=== PATIENT | female | born 2005 | race Caucasian/White ===

== ENCOUNTER 2025-05-05 00:58 | Emergency (ER) | payer OTHER, SELFPAY ==
[2025-05-05 01:02] VITALS: BP 121/94
--- NOTE | 2025-05-05 01:47 | ED.SKININJ ---
HPI-Injury
General
Chief Complaint: Bite
Time Seen by Provider: 05/05/25 01:10
History of Present Illness-Injury
Initial Injury comments:
19-year-old female presents to the emergency department for evaluation of the dog bite to the right foot. States she was lying in bed when her dogs got into fights and her foot was caught in the way. She has a large wound to the dorsum of the
right foot with smaller wounds to the plantar aspect of the foot. Last tetanus is unknown. Dog is up-to-date on all vaccinations
Review of Systems
Review of Systems
Allergies reviewed?: Yes
All Other Systems: ROS reviewed and negative except as documented in HPI and ROS
Phy Exam
Physical Exam
Physical Exam:
GEN: Well appearing, NAD, WDWN
HEENT: Oral mucosa moist, no scleral icterus
Cardiac: Regular rate
Lung: No respiratory distress, no tachypnea
MSK: No gross deformity or injuries
Skin: Good color, no pallor or jaundice, no rashes. 3.5 cm V shaped laceration to the dorsum of the right foot with no exposed tendon structures or visible foreign bodies, strong right DP pulse. Additional small wounds to the lateral fifth MTP
joint and plantar midfoot
Neuro: AO x3, moves all extremities freely
Psych: Calm, cooperative
Course
Orders/Labs/Results
Orders:
Orders
05/05/25 01:41
LevoFLOXacin [Levaquin] 500 mg PO NOW STA
MetroNIDAZOLE [Flagyl] 500 mg PO NOW STA
05/05/25 01:42
Tetanus/Diphth/Acelpertussis [Adacel] 0.5 ml IM .ONCE ONE
CR Foot - Right Min 3 Views Urgent
Comment:
Reason For Exam: bite wound
Vital Signs
Initial and Last Documented VS:
Initial Vital Signs
Temp Pulse Resp BP Pulse Ox
98.8 F 99 20 121/94 97
05/05/25 01:02 05/05/25 01:02 05/05/25 01:02 05/05/25 01:02 05/05/25 01:02
Last Documented Vital Signs
Temp Pulse Resp BP Pulse Ox
98.8 F 99 20 121/94 97
05/05/25 01:02 05/05/25 01:02 05/05/25 01:02 05/05/25 01:02 05/05/25 01:49
Procedures
Laceration Closure
Right dorsal foot:
Status of Wound: clean
Size of Wound in cm: 3.5
Description of Wound Edges: sharp
Preparation: cleaned with saline
Anesthesia: 1% Lidocaine with epi
Wound exploration: explored to base- no FB and no tendon involvement
Type of Closure: single layer closure
Skin Closure Material: 4-0 prolene
Number of sutures: 5
Additional information:
Loosely reapproximated
MDM/Problems Addressed
MDM/Problems Addressed:
Loose closure performed after copious irrigation. Tetanus status updated. Will cover the patient with Levaquin and metronidazole per IDSA recommendations as the patient has a significant penicillin allergy. Discussed home supportive care
*Pulse Oximetry
SaO2: 97
Oxygen Mode of Delivery: Room air
Patient hypoxic: no
*Critical Care Note
Total Time (30-74mins, 75-104mins- exclusive of procedures): Not Applicable
ED Attending Note
-
Portions of this chart may have been created with voice recognition software.� Occasional wrong word or��sound alike� substitutions may have occurred due to the inherent limitations of voice recognition software.
Discharge Plan
Departure
Patient Disposition: Home (Routine Discharge)
Date of Disposition: 05/05/25
Time of Disposition: 02:12
Patient with high blood pressure during this ER visit?: No
Discharge Problem:
Dog bite of right foot
Instructions: Animal Bites (DC)
Prescriptions:
New
levofloxacin 500 mg tablet
500 mg PO DAILY Qty: 4 0RF
metronidazole 500 mg tablet
500 mg PO TID Qty: 14 0RF
No Action
albuterol sulfate 90 mcg/actuation Hfa Aerosol Inhaler
1 inh INHALATION PRN PRN (Reason: asthma)
hydroxyzine HCl 10 mg Tablet
PO HS PRN (Reason: insomnia)
Referrals:
Earline Serna MD [Family Provider, Family Practice]
Activity Restrictions/Additional Instructions:
Keep the wound dry for the next 24 hours then wash daily with gentle soap and water. Sutures should remain in place for 10 to 14 days before removal. Take the antibiotics as prescribed. Return to the ER if you develop severe pain or fever
Interventions
Interventions:
*General Assessment Last Done: 05/05/25 01:12
*Neglect/Abuse Screening Last Done: 05/05/25 01:37
*ED COVID-19 Vaccine History Last Done: 05/05/25 01:02
*ED Influenza Vaccine History Last Done: 05/05/25 01:02
[facility] Fall Risk Assessment Tool Last Done: 05/05/25 01:12
*Risk Screen - Suicide (C-SSRS) Last Done: 05/05/25 01:13
ED-Skin Assessment Last Done: 05/05/25 01:35
Discharge Date and Time
Print Language: SYRIAN
[2025-05-05] MEDS: ADACEL 0.5 ML IM (01:53)
[2025-05-05] MEDS: LEVAQUIN 500 MG PO (01:53)
[2025-05-05] MEDS: FLAGYL 500 MG PO (01:53)
== END 2025-05-05 02:22 | disposition home or self-care (01) ==
LOC: EMR 00:58
PROVIDERS: EMERGENCY PHYSICIAN Emergency Medicine; FAMILY PHYSICIAN Family Medicine
DX: S91.311A Laceration without foreign body, right foot, initial encounter (principal); W54.0XXA Bitten by dog, initial encounter; Z23 Encounter for immunization
CPT/HCPCS: 12002; 90471; 99283; 73630; 90715